=== PATIENT | male | born 1970 | race Two or more races ===

== ENCOUNTER 2024-10-09 18:02 | Emergency (ER) | payer MEDICAID, OTHER ==
[~2024-10-09] VITALS: Ht 165.1 cm; Wt 64.6 kg
[2024-10-09 18:32] VITALS: BP 104/66; PULSE 76; RESP 18; TEMP 98.4; O2SAT 95
[2024-10-09] MEDS: KETOROLAC TROMETH 60MG/2ML VIAL IM ONE (19:23)
--- NOTE | 2024-10-09 19:49 | DVH ---
CT CT LEFT HUMERUS WO CONTRAST INDICATION: injury pain EXAM DATE: 10/09/2024 07:02 PM COMPARISON: None RADIATION DOSE: CTDIvol: 9.65 mGy, DLP: 396.27 mGy*cm PROCEDURE: Helical CT images were obtained of left shoulder and humerus without contrast. Sagittal an d coronal reconstructions are provided. Findings: There are no fractures dislocations There is a subcortical cyst involving capitellum of the elbow measuring 6 mm in size and there is a s mall osteophyte involving the attachment of the radial collateral ligament complex to the medial epic ondyle of the distal humerus. IMPRESSION: 1. Acute bony findings. If more imaging is required I would recommend MRI examination.
--- NOTE | 2024-10-09 20:28 | ED.PDOC ---
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 DENIES NUMBNESS, WEAKNESS OR ANY OTHER KNOWN INJURY. Chief Complaint: Upper Extremity Time Seen by MD: 18:10 Primary Care Provider: NONE Reviewed Notes: Nurses Notes, Medications, Allergies Allergies: Coded Allergies: NO KNOWN ALLERGIES (Unverified , 10/09/24) Home Meds Active Scripts Tizanidine Hydrochloride (Tizanidine Hcl) 4 Mg Tab, 4 MG PO BID PRN for 5 Days, #10 TAB Prov:KENYATTA PATELP 10/09/24 Ibuprofen (Ibuprofen) 800 Mg Tab, 1 TAB PO TID for 6 Days, #18 TAB Prov:KENYATTA PATEL NEWS REPORTER 10/09/24 Mode of Arrival: Ambulatory Past Medical History PAST MEDICAL HISTORY: Denies Surgical History: Denies all surgeries Family History Family History: Reviewed,noncontributory to illness Constitutional: denies: chills, diaphoresis, fatigue, fever, malaise, sweats, weakness, others EENTM: denies: blurred vision, double vision, ear bleeding, ear discharge, ear drainage, ear pain, ear ringing, eye pain, eye redness, hearing loss, mouth pain, mouth swelling, nasal discharge, nose bleeding, nose congestion, nose pain, photophobia, tearing, throat pain, throat swelling, voice changes, others Respiratory: denies: cough, hemoptysis, orthopnea, SOB at rest, shortness of breath, SOB with excertion, stridor, wheezing, others Cardiovascular: denies: chest pain, dizzy spells, diaphoresis, Dyspnea on exertion, edema, irregular heart beat, left arm pain, lightheadedness, palpitations, PND, syncope, others Gastrointestinal: denies: abdomen distended, abdominal pain, blood streaked bowels, constipated, diarrhea, dysphagia, difficulty swallowing, hematemesis, melena, nausea, poor appetite, poor fluid intake, rectal bleeding, rectal pain, vomiting, others Genitourinary: denies: burning, dysuria, flank pain, frequency, hematuria, incontinence, penile discharge, penile sore, pain, testicle pain, testicle swelling, urgency, others Neurological: denies: dizziness, fainting, headache, left sided numbness, left sided weakness, numbness, paresthesia, pre-existing deficit, right sided numbness, right sided weakness, seizure, speech problems, tingling, tremors, weakness, others Musculoskeletal: reports: others (Left upper arm pain); denies: back pain, gout, joint pain, joint swelling, muscle pain, muscle stiffness, neck pain Integumetry: denies: bruises, change in color, change in hair/nails, dryness, laceration, lesions, lumps, rash, wounds, others Allergic/Immunocompromised: denies: Difficulty Healing, Frequent Infections, Hives, Itching, others Hematologic/Lymphatic: denies: anemia, blood clots, easy bleeding, easy bruising, swollen glands, others Endocrine: denies: excessive hunger, excessive sweating, excessive thirst, excessive urination, flushing, intolerance to cold, intolerance to heat, unexplained weight gain, unexplained weight loss, others Psychiatric: denies: anxiety, bipolar disorder, depression, hopeless, panic disorder, schizophrenia, sleepless, suicidal, others Physical Exam General Appearance: No Apparent Distress, Normal HEENT: Pharynx Normal Neck: Full Range of Motion, Non-Tender Respiratory: Lungs Clear, No Respiratory Distress, Normal Breath Sounds Cardiovascular: No Edema, No JVD, No Murmur, Normal Peripheral Pulses, Regular Rate/Rhythm Breast Exam: Deferred Gastrointestinal: Non Tender, Soft Genitalia: Deferred Pelvic: Deferred Rectal: Deferred Extremities: Normal capillary refill, Normal inspection, Normal range of motion, Non-tender, No pedal edema Musculoskeletal : Location: Left Extremity Location: Arm (MODERATE TENDERNESS PALPATED OVER LEFT MID SHAFT BICEP. NOTED MUSCLE RETRACTION EXTERNAL TRAUMA. SENSORY STRENGTH AND MOTION INTACT POSITIVE RADIAL PULSE.) Apperance: Normal Neurologic: Alert, manager managing II-XII nml as Tested, No Motor Deficits, Normal Affect, Normal Mood, No Sensory Deficits Cerebellar Function: Normal Reflexes: Normal Skin: Dry, Normal Color, Warm Lymphatic: No Adenopathy Was a procedure done? Was a procedure done?: No Back Pain Differential Dx Differential Diagnosis: Fracture, Musculoskeletal Pain X-Ray, Labs, Meds, VS Vital Signs Date Time Temp Pulse Resp B/P (MAP) Pulse Ox O2 Delivery O2 Flow Rate FiO2 10/09/24 18:32 98.4 76 18 104/66 (79) 95 98.4 10/09/24 18:32 76 18 95 Room Air 10/09/24 18:20 98.4 76 18 104/66 (79) 95 Current Medications Medications (Trade) Dose Ordered Sig/Radha Route Start Time Stop Time Status Last Admin Ketorolac Tromethamine (Toradol Injection) 60 mg ONCE ONCE IM 10/09/24 19:00 10/09/24 19:01 DC 10/09/24 19:23 X-Ray, Labs, Meds, VS Comment LIKELY MUSCLE STRAIN CT NEGATIVE FOR ANY ACUTE FINDINGS. ADVISED PATIENT TO FOLLOW UP PCP IN 1-2 DAYS CONSIDER MRI IF SYMPTOMS PERSIST. MEANTIME TRIAL A MUSCLE RELAXER AND ANTI-INFLAMMATORY ALONG WITH ICE AND HEAT DISCUSSED. TAKE MEDICATIONS PRESCRIBED SIDE EFFECTS DISCUSSED. ER RETURN PRECAUTIONS GIVEN PATIENT INDICATES UNDERSTANDING AGREES WITH DISCHARGE PLAN OF CARE. Time of 1ST Reevaluation: 20:27 Reevaluation 1ST: Improved Patient Education/Counseling: Diagnosis, Treatment, Prognosis, Need For Follow Up Family Education/Counseling: No Family Present Departure 1 Departure Time of Disposition: 20:27 Impression: Primary Impression: Strain of upper arm, left Qualified Codes: S46.912A - Strain of unspecified muscle, fascia and tendon at shoulder and upper arm level, left arm, initial encounter Disposition: HOME / SELF CARE / HOMELESS Condition: Stable e-Prescriptions Tizanidine Hydrochloride (Tizanidine Hcl) 4 Mg Tab 4 MG PO BID PRN for 5 Days, #10 TAB Prov: KENYATTA PATEL 10/09/24 Ibuprofen (Ibuprofen) 800 Mg Tab 1 TAB PO TID for 6 Days, #18 TAB Prov: KENYATTA PATEL 10/09/24 Discharged With: Self Critical Care Note Critical Care Time?: No Stability Stability form required: No KENYATTA PATEL Oct 09, 2024 20:28
[2024-10-09] MEDS ORDERED: IBUP-1456 PO (20:30)
[2024-10-09] MEDS ORDERED: TIZA-142 PO (20:30)
== END 2024-10-09 20:36 | disposition home or self-care (01) ==
LOC: ER 18:02
DX: S46.912A Strain of unspecified muscle, fascia and tendon at shoulder and upper arm level, left arm, initial encounter (principal); Z79.1 Long term (current) use of non-steroidal anti-inflammatories (NSAID); X50.0XXA Overexertion from strenuous movement or load, initial encounter; Y93.89 Activity, other specified; Y92.89 Other specified places as the place of occurrence of the external cause; Y99.8 Other external cause status
CPT/HCPCS: 73200; 96372; 99285; J1885